=== PATIENT | female | born 1950 | race Caucasian/White ===

== ENCOUNTER → 2017-06-01 | Outpatient (CLI) | payer OTHER ==
[~2017-06-01] MED LIST: ASPIR-TRIN325 MG PO; AUGMENTIN 500 M1 TAB PO; BENADRYL25 MG PO; BENADRYL50 MG PO; CELEBREX200 MG PO; DARVOCET N 1001 TAB PO; DIABETA2.5 MG PO; EVISTA60 MG PO; Flagyl500 M1 PO; HYDR25T PO; HYDROCODONE BIT1 T11 PO; LASIX40 MG PO; LEVOTHROID0.15 MG PO; LIPITOR20 MG PO; LISINOPRIL20 MG PO; MOTRIN800 MG PO; Motrin,Rufen800 MG PO; NAPROSYN500 MG PO; OYSTER CALCIUM500 M1 PO; POTASSIUM20 MEQ PO; PRILOSEC20 MG PO; TAGAMET400 MG PO; TOPROL XL50 M1 PO; TRILAFON8 MG PO; VIBRAMYCIN100 MG PO; VITAMIN D50000 I2 PO; ZOCOR40 MG; ZOLOFT100 MG PO; Zestril,Prinivi40 MG PO
== END | disposition home or self-care (01) ==
LOC: RAD 10:45
DX: Z13.820 Encounter for screening for osteoporosis (principal); M81.8 Other osteoporosis without current pathological fracture; E05.90 Thyrotoxicosis, unspecified without thyrotoxic crisis or storm; N95.9 Unspecified menopausal and perimenopausal disorder; Z90.710 Acquired absence of both cervix and uterus

== ENCOUNTER → 2017-06-08 | Outpatient (CLI) | payer OTHER | END | disposition home or self-care (01) | LOC: RAD 10:30 | DX: M17.0 Bilateral primary osteoarthritis of knee (principal) ==

== ENCOUNTER → 2017-08-25 | Outpatient (CLI) | payer OTHER | END | disposition home or self-care (01) | LOC: ORTHO 04:00 | DX: M16.0 Bilateral primary osteoarthritis of hip (principal) ==

== ENCOUNTER → 2017-09-07 | Outpatient (CLI) | payer OTHER | END | disposition home or self-care (01) | LOC: MAMMO 12:44 | DX: Z12.31 Encounter for screening mammogram for malignant neoplasm of breast (principal); E11.9 Type 2 diabetes mellitus without complications ==

== ENCOUNTER → 2017-09-25 | Outpatient (CLI) | payer OTHER | END | disposition home or self-care (01) | LOC: US 10:00 | DX: K76.0 Fatty (change of) liver, not elsewhere classified (principal) ==

== ENCOUNTER → 2018-03-07 | Outpatient (CLI) | payer OTHER ==
[~2018-03-07] MED LIST changes: +FISH OIL 1,2001 EACH PO; +PYRIDIUM200 M1 PO; +SEPTDS PO; +ZOFRAN4 MG PO
== END | disposition home or self-care (01) ==
LOC: MRI 09:32
DX: S83.232D Complex tear of medial meniscus, current injury, left knee, subsequent encounter (principal); S76.812D Strain of other specified muscles, fascia and tendons at thigh level, left thigh, subsequent encounter; M25.462 Effusion, left knee; C73 Malignant neoplasm of thyroid gland; X58.XXXD Exposure to other specified factors, subsequent encounter

== ENCOUNTER 2018-09-06 13:25 | Inpatient (IN) | payer OTHER ==
[~2018-09-06] VITALS: Ht 152.4 cm; Wt 74.8 kg
--- NOTE | ~2018-09-06 | EKG ---
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
--- NOTE | ~2018-09-06 | EKG ---
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
--- NOTE | ~2018-09-06 | EKG ---
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
--- NOTE | ~2018-09-06 | EKG ---
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
[~2018-09-06 13:25] MED LIST changes: -OYSTER CALCIUM500 M1 PO; +Oscal,Oyster S500 MG PO
[2018-09-06 13:31] VITALS: BP 130/76
[2018-09-06 13:57] VITALS: BP 103/54
[2018-09-06 13:58] LABS: BASO # 0.1 10*3/uL (0.0-0.1); BASO % 0.9 % (0.0-1.0); EOS # 0.4 10*3/uL (0.0-0.4); EOS % 3.6 % (1.0-4.0); HEMATOCRIT 40.7 % (37.0-47.0); LYMPH # 3.4 10*3/uL (1.3-4.4); LYMPH % 33.9 % (27.0-41.0); MEAN CELL VOLUME 86.6 fl (81.0-99.0); MEAN CORPUSCULAR HGB 27.7 pg (27.0-31.0); MEAN CORPUSCULAR HGB CONC 31.9 g/dl (33.0-37.0); MEAN PLATELET VOLUME 9.6 fl (9.6-12.3); MONO # 0.9 10*3/uL (0.1-1.0); MONO % 8.7 % (3.0-9.0); NEUT # 5.3 10*3/uL (2.3-7.9); NEUT % 52.5 % (47.0-73.0); PLATELET COUNT AUTOMATED 232 10*3/uL (130-400); RED CELL DISTRI WIDTH 13.9 % (0-14.5)
[2018-09-06 14:05] LABS: ACT PARTIAL THROMBO TIME 23.3 SECONDS (20.8-31.5); INTERNATIONAL NORM RATIO 0.9 (2.0-3.5)
[2018-09-06 14:23] LABS: ALBUMIN 3.6 gm/dl (3.1-4.5); ALKALINE PHOSPHATASE 58 U/L (45-117); BUN 20 mg/dl (7-24); CHLORIDE 98 mmol/L (98-107); CREATININE 0.89 mg/dL (0.55-1.02); POTASSIUM 4.8 mmol/L (3.5-5.1); SGOT/AST 10 IU/L (3-35); SGPT/ALT 17 U/L (12-78); SODIUM 133 mmol/L (136-145); TOTAL PROTEIN 6.9 gm/dL (6.4-8.2)
[2018-09-06 14:25] LABS: TROPONIN I < 0.015 ng/ml (<0.045)
[2018-09-06 15:05] VITALS: BP 107/63
--- NOTE | 2018-09-06 15:30 | NUR ---
A 67, admitted to , under the services of AVA Santos DO with a diagnosis of CHEST PAIN. Chief complaint is LEFT SIDE CHEST PAIN. Patient arrived via bed from ER. Monitor applied. Initial assessment completed. Vital signs taken and recorded. AVA SANTOS DO notified of admission to the unit. Orders received. See assessment for past medical history, medications and allergies. Patient and/or family oriented to unit. [facility] reviewed. Clothing/patient valuable form completed. DEANNA WALSH
--- NOTE | 2018-09-06 15:44 | NUR ---
[facility] CALLED AT THIS TIME REGARDING MED LIST.
[2018-09-06 16:00] VITALS: BP 161/79
[2018-09-06] MEDS ORDERED: ALOGLIPTIN12.5 MG PO (16:53)
[2018-09-06] MEDS ORDERED: GLUCOPHAGE1000 MG PO (16:54)
[2018-09-06] MEDS ORDERED: VITAMIN D31000 UNI1 PO (16:57)
[2018-09-06] MEDS ORDERED: CETIRIZINE10 MG PO (17:00)
[2018-09-06] MEDS ORDERED: FISH OIL 1,0001 EAC4 PO (17:00)
[2018-09-06] MEDS ORDERED: LEVOTHYROXINE125 MCG PO (17:02)
[2018-09-06] MEDS ORDERED: AMLODIPINE BESY10 MG PO (17:03)
[2018-09-06] MEDS ORDERED: ZOLOFT50 MG PO (17:05)
[2018-09-06] MEDS ORDERED: ATIVAN0.5 MG PO (17:06)
[2018-09-06 20:00] VITALS: BP 133/61
[2018-09-07] VITALS: BP 105/56
[2018-09-07 04:00] VITALS: BP 119/62
--- NOTE | 2018-09-07 04:25 | NUR ---
CALLED DOCTOR BRODIE PATIENT COMPLAINING OF CHEST PAIN RADIATING TO LEFT ARM AND BACK LABS ORDERED AND STAT EKG.
[2018-09-07 05:50] LABS: ALBUMIN 3.2 gm/dl (3.1-4.5); ALKALINE PHOSPHATASE 49 U/L (45-117); BUN 19 mg/dl (7-24); CHLORIDE 101 mmol/L (98-107); CHOLESTEROL 186 mg/dL (<200); CREATININE 0.78 mg/dL (0.55-1.02); FREE T4 1.03 ng/dl (0.76-1.46); HDL CHOLESTEROL 42 mg/dl (40-60); LDL CHOLESTEROL 112 mg/dL (9-159); PHOSPHOROUS 4.1 mg/dL (2.5-4.9); POTASSIUM 4.2 mmol/L (3.5-5.1); SGOT/AST 8 IU/L (3-35); SGPT/ALT 16 U/L (12-78); SODIUM 137 mmol/L (136-145); TOTAL PROTEIN 6.4 gm/dL (6.4-8.2); TRIGLYCERIDES 162 mg/dl (<150); VLDL CHOLESTEROL 32 mg/dL (6-40)
[2018-09-07 05:58] LABS: BASO # 0.1 10*3/uL (0.0-0.1); BASO % 0.9 % (0.0-1.0); EOS # 0.4 10*3/uL (0.0-0.4); EOS % 4.6 % (1.0-4.0); HEMOGLOBIN 13.2 g/dl (12.0-16.0); LYMPH # 2.8 10*3/uL (1.3-4.4); LYMPH % 32.9 % (27.0-41.0); MEAN CELL VOLUME 85.8 fl (81.0-99.0); MEAN CORPUSCULAR HGB 28.3 pg (27.0-31.0); MEAN PLATELET VOLUME 10.5 fl (9.6-12.3); MONO # 0.9 10*3/uL (0.1-1.0); MONO % 10.3 % (3.0-9.0); NEUT # 4.3 10*3/uL (2.3-7.9); NEUT % 51.1 % (47.0-73.0); PLATELET COUNT AUTOMATED 229 10*3/uL (130-400); RED BLOOD COUNT 4.66 10*6/uL (4.10-5.10); WHITE BLOOD COUNT 8.4 10*3/uL (4.8-10.8)
[2018-09-07 07:18] LABS: VITAMIN D, 25-HYDROXY 49.9 ng/mL (30-100)
--- NOTE | 2018-09-07 09:00 | NUR ---
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 Patient states lives at home with alone. There are few steps in the home. Physician: annabelle nunn [facility]acy: [facility] Home health services: none Patient's level of ADLs: INDEPENDENT Patient has working utilities: all working DME: cane Follow-up physician's appointment after d/c: will be made by hospitalist nurse director upon discharge Does patient want to access PORTAL?: no Discharge plan discussed with patient, patient states she lives at home alone, she is independent in adls and ambulation, using a cane occasionally, patient states she doesn't drive but has a friend that takes her where ever she needs to go. patient states she will be going home when able. discussed with her VNA and she declines any servcies at this time. REID SERNA
--- NOTE | 2018-09-07 10:34 | NUR ---
PHYSICAL THERAPY PAtient off floor at testing. Susan Peralta,PT
--- NOTE | 2018-09-07 10:46 | NUR ---
PT DOWN FOR STRESS TEST AT THIS TIME.
--- NOTE | 2018-09-07 10:55 | NUR ---
Patient not available for Occupational Therapy as she is out of the room for a stress test. Leticia Bridges OTR/l
--- NOTE | 2018-09-07 11:30 | NUR ---
INFORMED CONSENT OBTAINED FOR LEXISCAN NUCLEAR STRESS TEST WITH DR. MITCHELL. RESTING EKG NSR WITH A RESTING HR OF 68 WITH BP OF 152/82. LUNGS CLEAR WITH SPO2 OF 94% ON ROOM AIR. PT COMPLETED A 1:00 LEXISCAN PROTOCOL RECEIVING LEXISCAN 0.4 MG IV OVER 10 SECONDS. HAD NO CHEST PAIN OR ANY EKG CHANGES. HAD A PEAK HR OF 95 WITH BP OF 138/72. LAST RECOVERY HR OF 89 WITH BP OF 138/68. AWAITING SCANNING IN STABLE CONDITION.
[2018-09-07 12:00] VITALS: BP 136/68
--- NOTE | 2018-09-07 13:35 | NUR ---
TOLERATED PO MEDS WELL. NO COMPLAINTS VOICED AT THIS TIME. CALL LIGHT IN REACH.
[2018-09-07] MEDS ORDERED: ASPIRIN CHEWABL81 M1 PO (13:42)
[2018-09-07] MEDS ORDERED: ATORVASTATIN CA40 M1 PO (13:42)
--- NOTE | 2018-09-07 13:48 | NUR ---
Occupational Therapy evaluation completed on 4 with full eval to follow. Precautions include, O2 use, left [place], right deafness with low vision deficits, low complexity level 27727. Recommend no further Ot at this time. Patient is independent in ADLs and functional mobility and does not require further OT to return home alone to apt living. Thank you for this referral. Leticia Bridges OTR/l
--- NOTE | 2018-09-07 14:27 | NUR ---
PHYSICAL THERAPY Patient evaluated on 4, full evaluation to follow. Continue with PT as per plan of care with fall, VERTIGO and acute debility precautions. Home, with home health RN and PT recommended. PAtient is moderate complexity via chart review, tests and evaluation: [id number]. Thank you for this referral. Susan Peralta,PT
[2018-09-07 17:08] VITALS: BP 148/80
--- NOTE | 2018-09-07 17:26 | NUR ---
Discharge instructions reviewed with patient/family. Patient receptive and verbalizes understanding. Follow-up care arranged. Written instructions given to patient/family. ALYSSA DE LA TORRE
== END 2018-09-07 17:26 | disposition home or self-care (01) | DRG 206 ==
LOC: ED 13:25 → EDHOLD 14:46 → 4E 14:46
PROVIDERS: Emergency Medicine; Registered Nurse; ADMIT Internal Medicine
PROC: 4A02XM4 Measurement of Cardiac Total Activity, External Approach (ICD-10-PCS; principal; 2018-09-07)
PROC: 3E073KZ Introduction of Other Diagnostic Substance into Coronary Artery, Percutaneous Approach (ICD-10-PCS; principal; 2018-09-07)
DX: M94.0 Chondrocostal junction syndrome [Tietze] (principal); E44.0 Moderate protein-calorie malnutrition; E87.1 Hypo-osmolality and hyponatremia; I50.32 Chronic diastolic (congestive) heart failure; F32.9 Major depressive disorder, single episode, unspecified; E78.5 Hyperlipidemia, unspecified; E11.65 Type 2 diabetes mellitus with hyperglycemia; I11.0 Hypertensive heart disease with heart failure; E66.9 Obesity, unspecified; M19.90 Unspecified osteoarthritis, unspecified site; E89.0 Postprocedural hypothyroidism; E78.1 Pure hyperglyceridemia; F17.210 Nicotine dependence, cigarettes, uncomplicated; Z82.49 Family history of ischemic heart disease and other diseases of the circulatory system; I25.2 Old myocardial infarction; Z87.440 Personal history of urinary (tract) infections; Z90.710 Acquired absence of both cervix and uterus; Z88.1 Allergy status to other antibiotic agents; Z79.899 Other long term (current) drug therapy; Z79.82 Long term (current) use of aspirin; Z71.6 Tobacco abuse counseling

== ENCOUNTER → 2018-12-06 | Outpatient (CLI) | payer OTHER ==
[~2018-12-06] MED LIST changes: +ALOGLIPTIN12.5 MG PO; +AMLODIPINE BESY10 MG PO; +ASPIRIN CHEWABL81 M1 PO; +ATIVAN0.5 MG PO; +ATORVASTATIN CA40 M1 PO; +CETIRIZINE10 MG PO; +FISH OIL 1,0001 EAC4 PO; +GLUCOPHAGE1000 MG PO; +LEVOTHYROXINE125 MCG PO; +VITAMIN D31000 UNI1 PO; +ZOLOFT50 MG PO
== END | disposition home or self-care (01) ==
LOC: MAMMO 09:36
DX: Z12.31 Encounter for screening mammogram for malignant neoplasm of breast (principal)

== ENCOUNTER → 2019-03-18 | Outpatient (CLI) | payer OTHER | END | disposition home or self-care (01) | LOC: RAD 12:49 | DX: Z13.820 Encounter for screening for osteoporosis (principal); R29.890 Loss of height; E11.9 Type 2 diabetes mellitus without complications; M19.90 Unspecified osteoarthritis, unspecified site; Z78.0 Asymptomatic menopausal state; Z90.710 Acquired absence of both cervix and uterus ==

== ENCOUNTER → 2019-04-12 | Outpatient (CLI) | payer OTHER | END | disposition home or self-care (01) | LOC: CT 12:59 | DX: K43.9 Ventral hernia without obstruction or gangrene (principal); K59.00 Constipation, unspecified ==

== ENCOUNTER → 2020-01-09 | Outpatient (CLI) | payer OTHER | END | disposition home or self-care (01) | LOC: MAMMO 10:23 | DX: Z12.31 Encounter for screening mammogram for malignant neoplasm of breast (principal) ==

== ENCOUNTER 2020-01-16 13:35 | Emergency (ER) | payer OTHER ==
[~2020-01-16] VITALS: Ht 157.4 cm; Wt 77.1 kg
[2020-01-16 13:43] VITALS: BP 135/68
[2020-01-16] MEDS ORDERED: ULTRAM50 MG PO (14:53)
== END 2020-01-16 15:03 | disposition home or self-care (01) ==
LOC: ED 13:35
DX: S80.02XA Contusion of left knee, initial encounter (principal); E11.9 Type 2 diabetes mellitus without complications; M19.90 Unspecified osteoarthritis, unspecified site; F32.9 Major depressive disorder, single episode, unspecified; I10 Essential (primary) hypertension; I25.2 Old myocardial infarction; Z88.8 Allergy status to other drugs, medicaments and biological substances; Z79.899 Other long term (current) drug therapy; W19.XXXA Unspecified fall, initial encounter; Y93.89 Activity, other specified; Y92.89 Other specified places as the place of occurrence of the external cause; Y99.8 Other external cause status

== ENCOUNTER → 2020-07-07 | Outpatient (CLI) | payer OTHER ==
[~2020-07-07] MED LIST changes: +ULTRAM50 MG PO
== END | disposition home or self-care (01) ==
LOC: COVID19 10:51
PROVIDERS: ATTEND Nurse Practitioner Primary Care
DX: Z20.822 Contact with and (suspected) exposure to COVID-19 (principal)

== ENCOUNTER 2020-09-26 12:54 | Emergency (ER) | payer OTHER ==
[~2020-09-26 12:54] MED LIST changes: -AMOXICILLIN500 M3 PO; -FLONASE ALLERG9.9 ML NAS; -PREDNISONE20 M1 PO
[2020-09-26 13:05] VITALS: BP 145/78
[2020-09-26] MEDS ORDERED: AMOXICILLIN500 M3 PO (14:08)
[2020-09-26] MEDS ORDERED: FLONASE ALLERG9.9 ML NAS (14:08)
== END 2020-09-26 14:11 | disposition home or self-care (01) ==
LOC: ED 12:54
DX: J32.9 Chronic sinusitis, unspecified (principal); E11.9 Type 2 diabetes mellitus without complications; F41.9 Anxiety disorder, unspecified; F32.9 Major depressive disorder, single episode, unspecified; F17.200 Nicotine dependence, unspecified, uncomplicated; Z79.899 Other long term (current) drug therapy; Z79.84 Long term (current) use of oral hypoglycemic drugs; Z90.711 Acquired absence of uterus with remaining cervical stump; Z98.890 Other specified postprocedural states; Z88.8 Allergy status to other drugs, medicaments and biological substances

== ENCOUNTER → 2020-09-26 | Outpatient (CLI) | payer OTHER ==
[~2020-09-26] MED LIST changes: +AMOXICILLIN500 M3 PO; +FLONASE ALLERG9.9 ML NAS; +PREDNISONE20 M1 PO
== END | disposition home or self-care (01) ==
LOC: RAD 12:56
PROVIDERS: ATTEND Nurse Practitioner Primary Care
DX: S83.012A Lateral subluxation of left patella, initial encounter (principal); S83.011A Lateral subluxation of right patella, initial encounter; M17.0 Bilateral primary osteoarthritis of knee; M25.762 Osteophyte, left knee; M25.761 Osteophyte, right knee; X58.XXXA Exposure to other specified factors, initial encounter; Y93.89 Activity, other specified; Y92.89 Other specified places as the place of occurrence of the external cause; Y99.8 Other external cause status

== ENCOUNTER 2020-09-29 21:19 | Emergency (ER) | payer OTHER ==
[~2020-09-29] VITALS: Ht 167 cm; Wt 72.6 kg
[~2020-09-29 21:19] MED LIST changes: +AMOXICILLIN500 M3 PO; +FLONASE ALLERG9.9 ML NAS
[2020-09-29 21:40] LABS: BASO # 0.1 10*3/uL (0.0-0.1); EOS # 0.7 10*3/uL (0.0-0.4); EOS % 5.9 % (1.0-4.0); HEMATOCRIT 38.5 % (37.0-47.0); LYMPH # 3.9 10*3/uL (1.3-4.4); LYMPH % 33.3 % (27.0-41.0); MEAN CELL VOLUME 84.2 fl (81.0-99.0); MEAN CORPUSCULAR HGB 27.8 pg (27.0-31.0); MEAN PLATELET VOLUME 8.5 fl (9.6-12.3); MONO % 8.2 % (3.0-9.0); NEUT # 5.9 10*3/uL (2.3-7.9); NEUT % 51.1 % (47.0-73.0); PLATELET COUNT AUTOMATED 390 10*3/uL (130-400); RED BLOOD COUNT 4.57 10*6/uL (4.10-5.10); RED CELL DISTRI WIDTH 13.2 % (0-14.5); WHITE BLOOD COUNT 11.6 10*3/uL (4.8-10.8)
[2020-09-29 21:57] LABS: ALKALINE PHOSPHATASE 81 U/L (45-117); BUN 17 mg/dl (7-24); CHLORIDE 98 mmol/L (98-107); CREATININE 0.82 mg/dL (0.55-1.02); POTASSIUM 4.2 mmol/L (3.5-5.1); SGOT/AST 11 IU/L (3-35); SGPT/ALT 27 U/L (12-78); SODIUM 134 mmol/L (136-145); TOTAL PROTEIN 6.8 gm/dL (6.4-8.2)
[2020-09-29] MEDS ORDERED: PREDNISONE20 M1 PO (22:34)
[2020-09-29 22:48] VITALS: BP 130/79
== END 2020-09-29 22:48 | disposition home or self-care (01) ==
LOC: ED 21:19
PROVIDERS: Internal Medicine
DX: J40 Bronchitis, not specified as acute or chronic (principal); E89.0 Postprocedural hypothyroidism; Z88.8 Allergy status to other drugs, medicaments and biological substances; Z79.899 Other long term (current) drug therapy; Z79.84 Long term (current) use of oral hypoglycemic drugs; Z90.711 Acquired absence of uterus with remaining cervical stump; Z98.890 Other specified postprocedural states

== ENCOUNTER 2020-12-08 13:44 | Inpatient (IN) | payer OTHER ==
[2020-12-08] VITALS (7 sets, daily range): BP systolic 128–174; BP diastolic 69–100
[~2020-12-08] VITALS: Ht 157.4 cm; Wt 76.2 kg
[~2020-12-08 13:44] MED LIST changes: +PREDNISONE20 M1 PO
[2020-12-08 14:41] LABS: BASO # 0.1 10*3/uL (0.0-0.1); BASO % 1.2 % (0.0-1.0); EOS # 0.5 10*3/uL (0.0-0.4); EOS % 5.5 % (1.0-4.0); HEMATOCRIT 41.1 % (37.0-47.0); LYMPH # 3.6 10*3/uL (1.3-4.4); LYMPH % 37.7 % (27.0-41.0); MEAN CELL VOLUME 87.3 fl (81.0-99.0); MEAN CORPUSCULAR HGB 28.5 pg (27.0-31.0); MEAN CORPUSCULAR HGB CONC 32.6 g/dl (33.0-37.0); MONO # 0.8 10*3/uL (0.1-1.0); MONO % 8.3 % (3.0-9.0); NEUT # 4.5 10*3/uL (2.3-7.9); PLATELET COUNT AUTOMATED 227 10*3/uL (130-400); RED BLOOD COUNT 4.71 10*6/uL (4.10-5.10); RED CELL DISTRI WIDTH 14.9 % (0-14.5); WHITE BLOOD COUNT 9.5 10*3/uL (4.8-10.8)
[2020-12-08 14:50] LABS: ALBUMIN 3.5 gm/dl (3.1-4.5); ALKALINE PHOSPHATASE 66 U/L (45-117); BUN 10 mg/dl (7-24); CHLORIDE 104 mmol/L (98-107); CREATININE 0.75 mg/dL (0.55-1.02); LIPASE 82 U/L (73-393); POTASSIUM 3.8 mmol/L (3.5-5.1); SGOT/AST 7 IU/L (3-35); SGPT/ALT 16 U/L (12-78); SODIUM 138 mmol/L (136-145); TOTAL PROTEIN 6.7 gm/dL (6.4-8.2)
[2020-12-08 14:51] LABS: TROPONIN I < 0.015 ng/ml (<0.045)
[2020-12-09 03:17] VITALS: BP 126/62
[2020-12-09 05:43] LABS: ALBUMIN 3.2 gm/dl (3.1-4.5); ALKALINE PHOSPHATASE 61 U/L (45-117); BUN 10 mg/dl (7-24); CHLORIDE 106 mmol/L (98-107); CHOLESTEROL 124 mg/dL (<200); FREE T4 0.96 ng/dl (0.76-1.46); LDL CHOLESTEROL 67 mg/dL (9-159); POTASSIUM 3.8 mmol/L (3.5-5.1); SGOT/AST 10 IU/L (3-35); SGPT/ALT 17 U/L (12-78); SODIUM 141 mmol/L (136-145); TOTAL PROTEIN 6.3 gm/dL (6.4-8.2); TRIGLYCERIDES 77 mg/dl (<150)
[2020-12-09 06:03] VITALS: BP 128/66
[2020-12-09 06:18] LABS: BASO # 0.1 10*3/uL (0.0-0.1); BASO % 0.8 % (0.0-1.0); EOS # 0.5 10*3/uL (0.0-0.4); EOS % 5.2 % (1.0-4.0); HEMATOCRIT 42.3 % (37.0-47.0); LYMPH # 3.5 10*3/uL (1.3-4.4); LYMPH % 34.6 % (27.0-41.0); MEAN CELL VOLUME 86.5 fl (81.0-99.0); MEAN CORPUSCULAR HGB CONC 32.4 g/dl (33.0-37.0); MEAN PLATELET VOLUME 10.3 fl (9.6-12.3); MONO % 9.4 % (3.0-9.0); NEUT % 49.8 % (47.0-73.0); PLATELET COUNT AUTOMATED 239 10*3/uL (130-400); RED BLOOD COUNT 4.89 10*6/uL (4.10-5.10); WHITE BLOOD COUNT 10.1 10*3/uL (4.8-10.8)
[2020-12-09 06:58] LABS: VITAMIN D, 25-HYDROXY 71.8 ng/mL (30-100)
[2020-12-09 07:32] VITALS: BP 121/62
[2020-12-09 07:55] VITALS: BP 156/88
[2020-12-09] MEDS ORDERED: ZOFRAN4 MG PO (11:18)
== END 2020-12-09 13:21 | disposition home or self-care (01) | DRG 757 ==
LOC: ED → EDHOLD 16:48 → 5E 16:48
PROVIDERS: Emergency Medicine; Internal Medicine; ADMIT Internal Medicine; ATTEND Internal Medicine
DX: R54 Age-related physical debility (principal); E86.0 Dehydration; R19.7 Diarrhea, unspecified; F32.9 Major depressive disorder, single episode, unspecified; R11.0 Nausea; F17.219 Nicotine dependence, cigarettes, with unspecified nicotine-induced disorders; E89.0 Postprocedural hypothyroidism; I11.0 Hypertensive heart disease with heart failure; E78.1 Pure hyperglyceridemia; M19.90 Unspecified osteoarthritis, unspecified site; E66.9 Obesity, unspecified; I50.32 Chronic diastolic (congestive) heart failure; Z88.1 Allergy status to other antibiotic agents; Z90.710 Acquired absence of both cervix and uterus; Z90.49 Acquired absence of other specified parts of digestive tract; Z98.49 Cataract extraction status, unspecified eye; Z82.49 Family history of ischemic heart disease and other diseases of the circulatory system; Z83.3 Family history of diabetes mellitus; Z79.899 Other long term (current) drug therapy; Z79.82 Long term (current) use of aspirin; Z79.52 Long term (current) use of systemic steroids; Z71.6 Tobacco abuse counseling; Z68.30 Body mass index [BMI] 30.0-30.9, adult

== ENCOUNTER → 2020-12-24 | Outpatient (CLI) | payer OTHER | END | disposition home or self-care (01) | LOC: CARD 08:48 | PROVIDERS: ATTEND Nurse Practitioner Primary Care | DX: I49.3 Ventricular premature depolarization (principal); I49.1 Atrial premature depolarization ==

== ENCOUNTER → 2021-03-19 | Outpatient (CLI) | payer OTHER | END | disposition home or self-care (01) | LOC: RAD 12:45 | PROVIDERS: ATTEND Nurse Practitioner Primary Care | DX: M85.851 Other specified disorders of bone density and structure, right thigh (principal); Z78.0 Asymptomatic menopausal state ==

== ENCOUNTER 2021-03-25 11:30 | Emergency (ER) | payer OTHER ==
[~2021-03-25] VITALS: Ht 154.9 cm; Wt 70.3 kg
[2021-03-25 12:33] LABS: BASO # 0.1 10*3/uL (0.0-0.1); BASO % 0.9 % (0.0-1.0); EOS # 0.5 10*3/uL (0.0-0.4); HEMATOCRIT 39.4 % (37.0-47.0); LYMPH # 3.3 10*3/uL (1.3-4.4); LYMPH % 37.7 % (27.0-41.0); MEAN CELL VOLUME 87.2 fl (81.0-99.0); MEAN CORPUSCULAR HGB 27.9 pg (27.0-31.0); MEAN PLATELET VOLUME 10.3 fl (9.6-12.3); MONO # 0.7 10*3/uL (0.1-1.0); MONO % 7.7 % (3.0-9.0); NEUT # 4.1 10*3/uL (2.3-7.9); NEUT % 47.5 % (47.0-73.0); PLATELET COUNT AUTOMATED 200 10*3/uL (130-400); RED BLOOD COUNT 4.52 10*6/uL (4.10-5.10); RED CELL DISTRI WIDTH 13.7 % (0-14.5); WHITE BLOOD COUNT 8.7 10*3/uL (4.8-10.8)
[2021-03-25 12:48] LABS: ALBUMIN 3.1 gm/dl (3.1-4.5); ALKALINE PHOSPHATASE 59 U/L (45-117); BUN 18 mg/dl (7-24); CHLORIDE 105 mmol/L (98-107); CREATININE 0.77 mg/dL (0.55-1.02); LIPASE 107 U/L (73-393); POTASSIUM 3.8 mmol/L (3.5-5.1); SGOT/AST 12 IU/L (3-35); SGPT/ALT 20 U/L (12-78); SODIUM 140 mmol/L (136-145); TOTAL PROTEIN 6.3 gm/dL (6.4-8.2)
[2021-03-25 13:48] LABS: BILIRUBIN Negative (Negative); BLOOD Negative (Negative); CLARITY Clear (Clear); COLOR Yellow (Yellow); GLUCOSE Negative (Negative); KETONE Negative (Negative); LEUKO ESTERASE Negative (Negative); NITRITE Negative (Negative); PH 7.5 (4.5-8.0); UROBILINOGEN 0.2 E.U./dl (0.0-1.0)
[2021-03-25 14:12] LABS: BACTERIA TRACE; CALCIUM OXALATE CRYSTALS 1+; EPITHELIAL CELLS 0-2; WBC 0-2 wbc/hpf (0-5)
[2021-03-25 16:17] VITALS: BP 140/77
== END 2021-03-25 17:00 | disposition home or self-care (01) ==
LOC: ED 11:30
PROVIDERS: Physician Assistant
DX: K59.00 Constipation, unspecified (principal); Z88.8 Allergy status to other drugs, medicaments and biological substances; Z79.899 Other long term (current) drug therapy

== ENCOUNTER → 2021-07-01 | Outpatient (CLI) | payer OTHER | END | disposition home or self-care (01) | LOC: COVID19 17:35 | PROVIDERS: ATTEND Student in an Organized Health Care Education/Training Program | DX: Z11.52 Encounter for screening for COVID-19 (principal) ==

== ENCOUNTER 2021-09-17 10:57 | Emergency (ER) | payer OTHER ==
[~2021-09-17] VITALS: Ht 154.9 cm; Wt 73.5 kg
[2021-09-17 11:09] VITALS: BP 123/58
[2021-09-17] MEDS ORDERED: FARXIGA10 M1 PO (11:23)
== END 2021-09-17 13:57 | disposition home or self-care (01) ==
LOC: ED 10:57
DX: M25.462 Effusion, left knee (principal); Z88.8 Allergy status to other drugs, medicaments and biological substances; Z79.899 Other long term (current) drug therapy; Z90.49 Acquired absence of other specified parts of digestive tract; Z90.710 Acquired absence of both cervix and uterus; Z87.891 Personal history of nicotine dependence

== ENCOUNTER 2021-12-25 20:08 | Emergency (ER) | payer OTHER ==
[~2021-12-25 20:08] MED LIST changes: +FARXIGA10 M1 PO
[2021-12-25 20:30] VITALS: BP 143/67
[2021-12-25 20:59] LABS: BASO # 0.1 10*3/uL (0.0-0.1); BASO % 1.1 % (0.0-1.0); EOS # 0.4 10*3/uL (0.0-0.4); EOS % 4.3 % (1.0-4.0); HEMATOCRIT 48.1 % (37.0-47.0); LYMPH # 4.5 10*3/uL (1.3-4.4); LYMPH % 43.1 % (27.0-41.0); MEAN CELL VOLUME 90.8 fl (81.0-99.0); MEAN CORPUSCULAR HGB 29.1 pg (27.0-31.0); MEAN PLATELET VOLUME 10.4 fl (9.6-12.3); MONO # 0.8 10*3/uL (0.1-1.0); MONO % 7.7 % (3.0-9.0); NEUT # 4.5 10*3/uL (2.3-7.9); NEUT % 43.6 % (47.0-73.0); PLATELET COUNT AUTOMATED 220 10*3/uL (130-400); RED CELL DISTRI WIDTH 13.2 % (0-14.5); WHITE BLOOD COUNT 10.3 10*3/uL (4.8-10.8)
[2021-12-25 21:14] LABS: CREATININE 1.25 mg/dL (0.55-1.02); POTASSIUM 4.4 mmol/L (3.5-5.1); TOTAL PROTEIN 7.6 gm/dL (6.4-8.2)
[2021-12-25 21:19] LABS: BILIRUBIN Negative (Negative); BLOOD Negative (Negative); CLARITY Clear (Clear); COLOR Yellow (Yellow); GLUCOSE 3+ (Negative); KETONE Negative (Negative); LEUKO ESTERASE Trace (Negative); NITRITE Negative (Negative); PH 6.5 (4.5-8.0); SPECIFIC GRAVITY 1.025 (1.001-1.030); UROBILINOGEN 0.2 E.U./dl (0.0-1.0)
[2021-12-25 21:28] LABS: BACTERIA TRACE
== END 2021-12-25 23:14 | disposition home or self-care (01) ==
LOC: ED 20:08
PROVIDERS: Nurse Practitioner Family
DX: B37.3 Candidiasis of vulva and vagina (principal); Z88.1 Allergy status to other antibiotic agents; Z79.899 Other long term (current) drug therapy; Z90.710 Acquired absence of both cervix and uterus; Z90.89 Acquired absence of other organs; Z90.49 Acquired absence of other specified parts of digestive tract

== ENCOUNTER → 2021-12-28 | Outpatient (CLI) | payer OTHER | END | disposition home or self-care (01) | LOC: MAMMO 15:06 | PROVIDERS: ATTEND Physician Assistant | DX: Z12.31 Encounter for screening mammogram for malignant neoplasm of breast (principal) ==

== ENCOUNTER 2022-01-05 15:26 | Inpatient (IN) | payer OTHER ==
[~2022-01-05] VITALS: Ht 157.4 cm; Wt 68.6 kg
[2022-01-05 15:42] VITALS: BP 93/54
[2022-01-05 15:49] LABS: BASO # 0.1 10*3/uL (0.0-0.1); BASO % 0.8 % (0.0-1.0); EOS # 0.4 10*3/uL (0.0-0.4); EOS % 4.4 % (1.0-4.0); HEMATOCRIT 42.2 % (37.0-47.0); LYMPH # 3.5 10*3/uL (1.3-4.4); LYMPH % 35.7 % (27.0-41.0); MEAN CORPUSCULAR HGB CONC 32.2 g/dl (33.0-37.0); MEAN PLATELET VOLUME 10.2 fl (9.6-12.3); MONO # 0.9 10*3/uL (0.1-1.0); MONO % 9.1 % (3.0-9.0); NEUT # 4.8 10*3/uL (2.3-7.9); NEUT % 49.8 % (47.0-73.0); PLATELET COUNT AUTOMATED 205 10*3/uL (130-400); RED BLOOD COUNT 4.69 10*6/uL (4.10-5.10); RED CELL DISTRI WIDTH 13.2 % (0-14.5); WHITE BLOOD COUNT 9.7 10*3/uL (4.8-10.8)
[2022-01-05 16:00] LABS: ACT PARTIAL THROMBO TIME 24.3 SECONDS (20.0-32.1)
[2022-01-05 16:09] LABS: ALKALINE PHOSPHATASE 57 U/L (45-117); BUN 26 mg/dl (7-24); CHLORIDE 108 mmol/L (98-107); CREATININE 1.02 mg/dL (0.55-1.02); LIPASE 152 U/L (73-393); POTASSIUM 4.1 mmol/L (3.5-5.1); SGOT/AST 18 IU/L (3-35); SGPT/ALT 20 U/L (12-78); SODIUM 141 mmol/L (136-145); TOTAL PROTEIN 6.2 gm/dL (6.4-8.2)
[2022-01-05 22:49] VITALS: BP 126/69
[2022-01-06 00:30] VITALS: BP 133/55
[2022-01-06 04:16] LABS: BASO % 0.4 % (0.0-1.0); HEMATOCRIT 45.5 % (37.0-47.0); LYMPH # 1.4 10*3/uL (1.3-4.4); LYMPH % 19.2 % (27.0-41.0); MEAN CELL VOLUME 88.9 fl (81.0-99.0); MEAN CORPUSCULAR HGB 29.1 pg (27.0-31.0); MEAN CORPUSCULAR HGB CONC 32.7 g/dl (33.0-37.0); MEAN PLATELET VOLUME 10.4 fl (9.6-12.3); MONO # 0.1 10*3/uL (0.1-1.0); NEUT # 5.7 10*3/uL (2.3-7.9); NEUT % 79.1 % (47.0-73.0); PLATELET COUNT AUTOMATED 204 10*3/uL (130-400); RED BLOOD COUNT 5.12 10*6/uL (4.10-5.10); WHITE BLOOD COUNT 7.2 10*3/uL (4.8-10.8)
[2022-01-06 04:38] LABS: ALKALINE PHOSPHATASE 54 U/L (45-117); BUN 25 mg/dl (7-24); CHLORIDE 108 mmol/L (98-107); CREATININE 1.01 mg/dL (0.55-1.02); FREE T4 1.12 ng/dl (0.76-1.46); POTASSIUM 4.2 mmol/L (3.5-5.1); SGOT/AST 19 IU/L (3-35); SGPT/ALT 24 U/L (12-78); SODIUM 140 mmol/L (136-145); TOTAL PROTEIN 6.5 gm/dL (6.4-8.2)
[2022-01-06 08:00] VITALS: BP 130/86
[2022-01-06 12:00] VITALS: BP 99/71
[2022-01-06] MEDS ORDERED: PREDNISONE50 MG PO (14:13)
[2022-01-06] MEDS ORDERED: LEVOFLOXACIN500 MG PO (14:13)
[2022-01-06 15:47] VITALS: BP 115/56
== END 2022-01-06 18:45 | disposition home or self-care (01) | DRG 133 ==
LOC: ED 15:26 → EDHOLD 17:55 → 4E 17:55 → EDHOLD 18:42 → 4E 23:40
PROVIDERS: Emergency Medicine; Student in an Organized Health Care Education/Training Program; ADMIT Student in an Organized Health Care Education/Training Program; ATTEND Student in an Organized Health Care Education/Training Program
DX: J96.01 Acute respiratory failure with hypoxia (principal); J44.1 Chronic obstructive pulmonary disease with (acute) exacerbation; K21.9 Gastro-esophageal reflux disease without esophagitis; E44.0 Moderate protein-calorie malnutrition; F17.210 Nicotine dependence, cigarettes, uncomplicated; E89.0 Postprocedural hypothyroidism; F32.9 Major depressive disorder, single episode, unspecified; M19.90 Unspecified osteoarthritis, unspecified site; I50.32 Chronic diastolic (congestive) heart failure; E87.8 Other disorders of electrolyte and fluid balance, not elsewhere classified; E83.41 Hypermagnesemia; E11.22 Type 2 diabetes mellitus with diabetic chronic kidney disease; I13.0 Hypertensive heart and chronic kidney disease with heart failure and stage 1 through stage 4 chronic kidney disease, or unspecified chronic kidney disease; N18.30 Chronic kidney disease, stage 3 unspecified; E78.1 Pure hyperglyceridemia; Z90.49 Acquired absence of other specified parts of digestive tract; Z90.710 Acquired absence of both cervix and uterus; Z98.49 Cataract extraction status, unspecified eye; Z88.8 Allergy status to other drugs, medicaments and biological substances; Z82.49 Family history of ischemic heart disease and other diseases of the circulatory system; Z79.82 Long term (current) use of aspirin; Z79.899 Other long term (current) drug therapy; Z68.27 Body mass index [BMI] 27.0-27.9, adult

== ENCOUNTER 2022-12-12 10:53 | Emergency (ER) | payer OTHER ==
[~2022-12-12] VITALS: Ht 157.4 cm; Wt 64.0 kg
[~2022-12-12 10:53] MED LIST changes: +LEVOFLOXACIN500 MG PO; +MUCINEX ER600 MG PO; +PREDNISONE10 MG PO; +PREDNISONE50 MG PO
[2022-12-12] MEDS ORDERED: LASIX20 MG PO (11:30)
[2022-12-12 11:39] LABS: BASO # 0.1 10*3/uL (0.0-0.1); BASO % 1.1 % (0.0-1.0); EOS # 0.3 10*3/uL (0.0-0.4); EOS % 3.3 % (1.0-4.0); HEMATOCRIT 43.4 % (37.0-47.0); LYMPH % 36.3 % (27.0-41.0); MEAN CELL VOLUME 86.8 fl (81.0-99.0); MEAN CORPUSCULAR HGB 27.6 pg (27.0-31.0); MEAN CORPUSCULAR HGB CONC 31.8 g/dl (33.0-37.0); MONO # 0.7 10*3/uL (0.1-1.0); NEUT # 4.3 10*3/uL (2.3-7.9); NEUT % 51.1 % (47.0-73.0); PLATELET COUNT AUTOMATED 212 10*3/uL (130-400); RED CELL DISTRI WIDTH 15.1 % (0-14.5); WHITE BLOOD COUNT 8.3 10*3/uL (4.8-10.8)
[2022-12-12 11:50] LABS: ACT PARTIAL THROMBO TIME 27.7 SECONDS (20.0-32.1)
[2022-12-12 12:04] LABS: ALKALINE PHOSPHATASE 80 U/L (46-116); BUN 21 mg/dl (9-23); CHLORIDE 102 mmol/L (98-107); LIPASE 32 U/L (12-53); POTASSIUM 4.2 mmol/L (3.4-5.1); SGPT/ALT 12 U/L (10-49); TOTAL PROTEIN 7.4 gm/dL (6.0-8.0)
[2022-12-12 14:35] VITALS: BP 140/90
== END 2022-12-12 14:54 | disposition left against medical advice (07) ==
LOC: ED 10:53
PROVIDERS: Emergency Medicine
DX: R22.1 Localized swelling, mass and lump, neck (principal); T70.3XXA Caisson disease [decompression sickness], initial encounter; E11.9 Type 2 diabetes mellitus without complications; F41.9 Anxiety disorder, unspecified; F32.A Depression, unspecified; M19.90 Unspecified osteoarthritis, unspecified site; I10 Essential (primary) hypertension; I25.2 Old myocardial infarction; Z88.8 Allergy status to other drugs, medicaments and biological substances; Z90.710 Acquired absence of both cervix and uterus; Z98.890 Other specified postprocedural states; Z98.49 Cataract extraction status, unspecified eye; Z90.49 Acquired absence of other specified parts of digestive tract; F17.210 Nicotine dependence, cigarettes, uncomplicated; X58.XXXA Exposure to other specified factors, initial encounter

== ENCOUNTER → 2023-01-09 | Outpatient (CLI) | payer OTHER ==
[~2023-01-09] MED LIST changes: +LASIX20 MG PO
== END | disposition home or self-care (01) ==
LOC: MAMMO 12-19 10:30
PROVIDERS: ATTEND Physician Assistant
DX: Z12.31 Encounter for screening mammogram for malignant neoplasm of breast (principal); E78.00 Pure hypercholesterolemia, unspecified

== ENCOUNTER 2023-03-06 05:00 | Emergency (ER) | payer OTHER ==
[~2023-03-06] VITALS: Wt 62.1 kg
[~2023-03-06 05:00] MED LIST changes: +AMOX-CLAV 875-1 EACH PO
[2023-03-06 05:11] VITALS: BP 153/91
[2023-03-06 05:34] LABS: BILIRUBIN Negative (Negative); BLOOD Negative (Negative); CLARITY Clear (Clear); COLOR Yellow (Yellow); GLUCOSE Negative (Negative); KETONE Negative (Negative); LEUKO ESTERASE Negative (Negative); NITRITE Negative (Negative); UROBILINOGEN 0.2 E.U./dl (0.0-1.0)
[2023-03-06 05:35] LABS: ACT PARTIAL THROMBO TIME 20.2 SECONDS (20.0-32.1); INTERNATIONAL NORM RATIO 0.9 (2.0-3.5)
[2023-03-06 05:42] LABS: BACTERIA TRACE; RBC 0-2 rbc/hpf (0-2)
[2023-03-06 05:43] LABS: MUCOUS 1+
[2023-03-06 05:46] LABS: ALKALINE PHOSPHATASE 97 U/L (46-116); BUN 13 mg/dl (9-23); CHLORIDE 102 mmol/L (98-107); LIPASE 38 U/L (12-53); POTASSIUM 3.1 mmol/L (3.4-5.1); SGPT/ALT 40 U/L (10-49); TOTAL PROTEIN 6.6 gm/dL (6.0-8.0)
[2023-03-06 05:54] LABS: BASO # 0.1 10*3/uL (0.0-0.1); BASO % 0.7 % (0.0-1.0); EOS # 0.1 10*3/uL (0.0-0.4); EOS % 1.8 % (1.0-4.0); HEMATOCRIT 31.2 % (37.0-47.0); LYMPH % 29.7 % (27.0-41.0); MEAN CELL VOLUME 89.4 fl (81.0-99.0); MEAN CORPUSCULAR HGB 28.4 pg (27.0-31.0); MEAN CORPUSCULAR HGB CONC 31.7 g/dl (33.0-37.0); MEAN PLATELET VOLUME 9.5 fl (9.6-12.3); MONO # 0.6 10*3/uL (0.1-1.0); MONO % 9.3 % (3.0-9.0); NEUT # 3.9 10*3/uL (2.3-7.9); NEUT % 56.7 % (47.0-73.0); PLATELET COUNT AUTOMATED 318 10*3/uL (130-400); RED BLOOD COUNT 3.49 10*6/uL (4.10-5.10); RED CELL DISTRI WIDTH 15.8 % (0-14.5); WHITE BLOOD COUNT 6.8 10*3/uL (4.8-10.8)
== END 2023-03-06 07:03 | disposition home or self-care (01) ==
LOC: ED 05:00
PROVIDERS: Internal Medicine
DX: J95.03 Malfunction of tracheostomy stoma (principal); R60.0 Localized edema; J44.9 Chronic obstructive pulmonary disease, unspecified; I50.9 Heart failure, unspecified; C32.9 Malignant neoplasm of larynx, unspecified; F17.210 Nicotine dependence, cigarettes, uncomplicated; Z88.8 Allergy status to other drugs, medicaments and biological substances; Z79.899 Other long term (current) drug therapy; Z79.82 Long term (current) use of aspirin; Z90.710 Acquired absence of both cervix and uterus; Z90.49 Acquired absence of other specified parts of digestive tract; Y84.8 Other medical procedures as the cause of abnormal reaction of the patient, or of later complication, without mention of misadventure at the time of the procedure

== ENCOUNTER 2023-03-15 16:05 | Inpatient (IN) | payer OTHER ==
[~2023-03-15] VITALS: Ht 162.5 cm; Wt 62.8 kg
[2023-03-15 16:12] VITALS: BP 138/100
[2023-03-15] MEDS ORDERED: MUCUS RELIEF600 MG PO (18:18)
[2023-03-15] MEDS ORDERED: Ipratropium Brom3 ML INH (18:19)
[2023-03-15] MEDS ORDERED: ACETAMINOPHEN325 M2 PO (18:19)
[2023-03-15] MEDS ORDERED: SENNA8.6 MG PO (18:20)
[2023-03-15] MEDS ORDERED: FLONASE ALLERG9.9 ML NAS (18:22)
[2023-03-15] MEDS ORDERED: LASIX20 MG PO (18:23)
[2023-03-15] MEDS ORDERED: DULCOLAX10 M1 R (18:25)
[2023-03-15 19:43] VITALS: BP 143/64
[2023-03-15 20:45] VITALS: BP 104/71
[2023-03-15 21:53] VITALS: BP 108/67
[2023-03-15 22:30] VITALS: BP 102/60
[2023-03-15 23:30] VITALS: BP 112/73
[2023-03-16] VITALS (8 sets, daily range): BP systolic 106–146; BP diastolic 58–85
== END 2023-03-16 14:10 | disposition home or self-care (01) | DRG 206 ==
LOC: ED 16:05 → EDHOLD 18:44 → 4E 03-16 09:12
PROVIDERS: ADMIT Internal Medicine; ATTEND Internal Medicine
DX: J95.03 Malfunction of tracheostomy stoma (principal); I50.32 Chronic diastolic (congestive) heart failure; I13.0 Hypertensive heart and chronic kidney disease with heart failure and stage 1 through stage 4 chronic kidney disease, or unspecified chronic kidney disease; E89.0 Postprocedural hypothyroidism; Z66 Do not resuscitate; N18.30 Chronic kidney disease, stage 3 unspecified; J44.9 Chronic obstructive pulmonary disease, unspecified; J98.8 Other specified respiratory disorders; E11.69 Type 2 diabetes mellitus with other specified complication; M81.0 Age-related osteoporosis without current pathological fracture; E11.22 Type 2 diabetes mellitus with diabetic chronic kidney disease; F32.9 Major depressive disorder, single episode, unspecified; Z88.8 Allergy status to other drugs, medicaments and biological substances; Z85.21 Personal history of malignant neoplasm of larynx; Z82.49 Family history of ischemic heart disease and other diseases of the circulatory system; Z82.3 Family history of stroke; Z90.49 Acquired absence of other specified parts of digestive tract; Z90.710 Acquired absence of both cervix and uterus; Z51.5 Encounter for palliative care; Z87.81 Personal history of (healed) traumatic fracture

== ENCOUNTER 2023-08-24 03:24 | Emergency (ER) | payer MEDICAID ==
[~2023-08-24] VITALS: Ht 152.4 cm; Wt 69.4 kg
[~2023-08-24 03:24] MED LIST changes: +ACETAMINOPHEN325 M2 PO; +DULCOLAX10 M1 R; +Ipratropium Brom3 ML INH; +MUCUS RELIEF600 MG PO; +SENNA8.6 MG PO
[2023-08-24 03:37] VITALS: BP 110/57
[2023-08-24] MEDS ORDERED: Albuterol Sulf/Ipratropium 3 ML VIAL NEB ONE (03:50)
[2023-08-24] MEDS ORDERED: methylPREDNISolone sod succ 125 MG VIAL IV ONE (03:50)
[2023-08-24 04:05] LABS: BASO % 0.6 % (0.0-1.0); EOS # 0.1 10*3/uL (0.0-0.4); EOS % 1.9 % (1.0-4.0); HEMATOCRIT 31.6 % (37.0-47.0); LYMPH # 1.6 10*3/uL (1.3-4.4); LYMPH % 22.3 % (27.0-41.0); MEAN CELL VOLUME 82.5 fl (81.0-99.0); MEAN CORPUSCULAR HGB 26.1 pg (27.0-31.0); MEAN CORPUSCULAR HGB CONC 31.6 g/dl (33.0-37.0); MEAN PLATELET VOLUME 8.8 fl (9.6-12.3); MONO # 0.8 10*3/uL (0.1-1.0); MONO % 11.4 % (3.0-9.0); NEUT # 4.6 10*3/uL (2.3-7.9); NEUT % 63.5 % (47.0-73.0); PLATELET COUNT AUTOMATED 220 10*3/uL (130-400); RED BLOOD COUNT 3.83 10*6/uL (4.10-5.10); RED CELL DISTRI WIDTH 14.8 % (0-14.5); WHITE BLOOD COUNT 7.2 10*3/uL (4.8-10.8)
[2023-08-24 04:20] LABS: BUN 12 mg/dl (9-23); CHLORIDE 96 mmol/L (98-107); LIPASE 26 U/L (12-53); POTASSIUM 4.1 mmol/L (3.4-5.1)
[2023-08-24] MEDS ORDERED: PREDNISONE20 M1 PO (06:21)
[2023-08-24] MEDS ORDERED: AMOX-CLAV 875-1 EACH PO (06:21)
== END 2023-08-24 07:06 | disposition home or self-care (01) ==
LOC: ED 03:24
PROVIDERS: Internal Medicine
DX: J44.1 Chronic obstructive pulmonary disease with (acute) exacerbation (principal); E11.9 Type 2 diabetes mellitus without complications; F41.9 Anxiety disorder, unspecified; F32.A Depression, unspecified; I10 Essential (primary) hypertension; I25.2 Old myocardial infarction; M19.90 Unspecified osteoarthritis, unspecified site; Z88.8 Allergy status to other drugs, medicaments and biological substances; Z90.710 Acquired absence of both cervix and uterus; Z90.49 Acquired absence of other specified parts of digestive tract; Z98.890 Other specified postprocedural states; F17.210 Nicotine dependence, cigarettes, uncomplicated

== ENCOUNTER 2024-02-15 22:11 | Emergency (ER) | payer MEDICAID ==
[2024-02-15 22:13] VITALS: BP 104/60
== END 2024-02-16 ==
LOC: ED 22:11
DX: J95.03 Malfunction of tracheostomy stoma (principal); E11.9 Type 2 diabetes mellitus without complications; F41.9 Anxiety disorder, unspecified; F32.A Depression, unspecified; I25.2 Old myocardial infarction; I10 Essential (primary) hypertension; M19.90 Unspecified osteoarthritis, unspecified site; F17.210 Nicotine dependence, cigarettes, uncomplicated; Z90.49 Acquired absence of other specified parts of digestive tract; Z98.890 Other specified postprocedural states